=== PATIENT | female | born 1980 | race African-American/Black ===

== ENCOUNTER 2023-06-03 04:50 | Emergency (ER) | payer MEDICAID, OTHER ==
[~2023-06-03] VITALS: Ht 167.6 cm; Wt 82.1 kg
[2023-06-03 04:59] VITALS: O2SAT 100
[2023-06-03 06:34] LABS: CLARITY URINE CLEAR (CLEAR); COLOR URINE YELLOW (YELLOW)
[2023-06-03 06:35] LABS: GLUCOSE URINE NEGATIVE (NEGATIVE); KETONES URINE NEGATIVE (NEGATIVE); NITRITE URINE NEGATIVE (NEGATIVE); OCCULT BLOOD URINE 2+ (NEGATIVE); PH URINE 5.5 (4.5-8.0); PROTEIN URINE NEGATIVE (NEGATIVE); SPECIFIC GRAVITY URINE 1.025 (1.005-1.030); UROBILINOGEN URINE 0.2 E.U./dL (0.2-1.0)
[2023-06-03 06:36] LABS: LEUKOCYTE ESTERASE URINE 1+ (NEGATIVE)
[2023-06-03 08:26] LABS: MUCUS URINE 2+ /lpf (< = 2+)
[2023-06-03 08:27] LABS: BACTERIA URINE TRACE; RBC URINE 0-2 /hpf (0-2); SQUAMOUS EPITHELIAL CELL URINE RARE /lpf (RARE/1+); WBC URINE 15-25 /hpf (0-2)
[2023-06-03] MEDS ORDERED: CEPHALEXIN 250MG CAPSULE PO ONE (09:00)
[2023-06-03] MEDS ORDERED: CEPH500C2 MT (09:00)
[2023-06-03] MEDS ORDERED: IBUP-2030 MT (09:00)
[2023-06-03] MEDS ORDERED: KETOROLAC 60MG/2ML VIAL IM ONE (09:00)
[2023-06-03 09:50] VITALS: BP 138/64; PULSE 96; RESP 16; TEMP 98.5
== END 2023-06-03 09:53 | disposition home or self-care (01) ==
LOC: ER 05:33
DX: N12 Tubulo-interstitial nephritis, not specified as acute or chronic (principal)
CPT/HCPCS: 81003; 81025; 87086; 96372; 99283; J1885; Z7610